=== PATIENT | female | born 1975 | race Caucasian/White ===

== ENCOUNTER → 2017-01-17 | Outpatient (CLI) | payer BC, SELFPAY ==
--- NOTE | 2017-01-17 14:32 | MRI ---
EXAM DESCRIPTION: MRI lumbar spine CLINICAL HISTORY: Radiculopathy. Lumbar spine pain COMPARISON: None Available. TECHNIQUE: Standard sagittal and axial MR images of the lumbar spine. FINDINGS: L5-S1: Mild facet arthrosis. No disk abnormality, canal or foraminal narrowing L4-5: Mild facet arthrosis and hypertrophy. Moderate to severe disc degeneration with loss of disc height, endplate irregularity and mild marrow edema. Circumferential protrusion with endplate osteophyte ridging. Soft disc protrusion is greatest right paracentral leading to subarticular recess narrowing and posterior displacement of the descending right L5 nerve. The protrusion is maximal about 6 mm beyond the endplate osteophytes measuring about 11 mm transverse. There is narrowing of the inferior foramen on the right abutting but not displacing or compressing the exiting right L4 nerve L3-4: Mild facet arthrosis right greater than left. Annular fissure and broad-based shallow protrusion right paracentral and foraminal abutting but not displacing or compressing descending right L4 nerve. The disc also abuts the exiting right L3 nerve. No left foraminal narrowing L2-3: No disc or facet abnormality, canal or foraminal narrowing L1-2: No canal or foraminal narrowing T12-L1: No canal or foraminal narrowing Conus medullaris and cauda equina are normal No marrow infiltration or focal marrow lesion. No paravertebral muscle abnormality No mass or adenopathy in the retroperitoneum IMPRESSION: L4-5: Severe disc degeneration. Asymmetric right paracentral protrusion impinging the descending right L5 nerve L3-4: Annular fissure and mild shallow protrusion abutting but not compressing the descending right L4 and the exiting right L3 nerves Electronically signed by: Nate Vyas MD 01/17/2017 2:31 PM CDT
== END | disposition home or self-care (01) ==
LOC: MRI 10:53
PROVIDERS: ATTEND Family Medicine
DX: M47.896 Other spondylosis, lumbar region (principal)

== ENCOUNTER 2017-08-27 16:35 | Emergency (ER) | payer BC, SELFPAY ==
[2017-08-27] MEDS ORDERED: DEXAMETHASONE INJ 4 MG/ML VIAL IM ONE (16:46)
[2017-08-27] MEDS ORDERED: diphenhydrAMINE HCL 25 MG CAP PO ONE (16:46)
--- NOTE | 2017-08-27 16:46 | ED.PDOC ---
History of Present Illness - General Chief Complaint: Bite: Animal/Insect/Human Stated Complaint: insect bite left hand Time Seen by Provider: 08/27/17 16:45 Source: patient Exam Limitations: no limitations - History of Present Illness Initial Comments: Liv Perdue 41 y/o female stated that she was stung by a wasp or or bee at about 1530 h today on her left hand at her backyard denies any sob/LOC noted swelling on left hand 30 minutes later and started itching all over her face neck upper extremities Timing/Duration: this afternoon Severity: moderate Location: extremities - left hand Improving Factors: nothing Worsening Factors: nothing Associated Symptoms: other - see hpi Allergies/Adverse Reactions: Allergies NO KNOWN ALLERGY Allergy (Verified 08/27/17 16:56) Home Medications: Ambulatory Orders predniSONE 20 mg PO QDAC #5 tab 08/27/17 Review of Systems - Review of Systems All other Systems: Reviewed and Negative, No Change from Baseline Past Medical History (General) - Patient Medical History Hx Seizures: No Hx Asthma: No Hx Hypertension: No Hx Thyroid Disease: No Hx Diabetes: No Surgical History: other - bilateral tubal sterilization - Social History Hx Physical Abuse: No Hx Emotional Abuse: No Hx Suspected Abuse: No - Female History Patient is a Female of Child Bearing Age (10 -59 yrs old): Yes Hx Last Menstrual Period: 08/04/17 Patient : No Family Medical History - Family History Mother Family History: No Known Physical Exam - Physical Exam General Appearance: Alert, Comfortable, No apparent distress Eyes, Ears, Nose, Throat Exam: PERRL/EOMI, normal ENT inspection, pharynx normal Neck: non-tender, supple Cardiovascular/Chest: regular rate, rhythm, no gallop, no murmur Respiratory: chest non-tender, lungs clear Gastrointestinal/Abdominal: non tender, soft, no organomegaly Back Exam: normal inspection, no CVA tenderness Extremity: no pedal edema, no calf tenderness Neurologic: alert, normal mood/affect, oriented x 3 Skin Exam: warm/dry, normal color Skin Problem Location: face, neck, upper extremities - redness swelling fingers left hand Skin Character: erythema Lymphatic: no adenopathy Progress - Progress Progress: 08/27/17 16:56 Vital Signs - 8 hr 08/27/17 16:42 Temperature 99.4 F Pulse Rate [ 72 PULSE OX] Respiratory 22 Rate Blood Pressure 152/71 [RIGHT BRACHIAL ] O2 Sat by Pulse 96 Oximetry Departure - Departure Clinical Impression: Pruritus, Swelling of left hand Sting from hornet, wasp, or bee Qualifiers: Encounter type: initial encounter Injury intent: accidental or unintentional Qualified Code(s): T63.451A - Toxic effect of venom of hornets, accidental ( unintentional), initial encounter; T63.441A - Toxic effect of venom of bees, accidental (unintentional), initial encounter; T63.461A - Toxic effect of venom of wasps, accidental (unintentional), initial encounter Time of Disposition: 17:17 Disposition: Discharge to Home or Self Care Condition: Good Departure Forms: ED Discharge - Pt. Copy, Patient Portal Self Enrollment Instructions: DI for Insect Bites and Stings Referrals: Nate Manuel MD [Primary Care Provider] - 1-2 Weeks Prescriptions: predniSONE 20 mg PO QDAC #5 tab Home Medications: Ambulatory Orders predniSONE 20 mg PO QDAC #5 tab 08/27/17 Additional Instructions: Continue with Benadryl 50 mg by mouth 3 x a day as needed for itching;Return to emergency room as needed
[2017-08-27 16:47] VITALS: BP 152/71; TEMP 99.4
[2017-08-27] MEDS ORDERED: predniSONE 10 MG TAB PO ONE (16:51)
[2017-08-27] MEDS ORDERED: EPINEPHrine HCL AMP 1 MG/ML AMP IM ONE (16:58)
[2017-08-27] MEDS: EPINEPHrine HCL AMP 1 MG/ML AMP SUBCU ONE ×2 (17:04→17:11)
[2017-08-27 17:42] VITALS: O2SAT 97
== END 2017-08-27 17:25 | disposition home or self-care (01) ==
LOC: ER 16:35
DX: T63.441A Toxic effect of venom of bees, accidental (unintentional), initial encounter (principal); R60.0 Localized edema; L29.9 Pruritus, unspecified; Y92.007 Garden or yard of unspecified non-institutional (private) residence as the place of occurrence of the external cause
CPT/HCPCS: J1100; J7512